=== PATIENT | male | born 1960 | race Caucasian/White ===

== ENCOUNTER 2017-11-10 10:03 | Emergency (ER) | payer BC ==
[2017-11-10 10:13] VITALS: BP 132/83
--- NOTE | 2017-11-10 10:50 | UC ---
Skin Complaint HPI - HPI Summary HPI Summary: 56 Y/O male presents with C/O tick bite. removed tick but states feels there is still part of insect imbedded in skin. States does not know how long tick has been there. Works outside. All other medical history and medication use reviewed at this visit. - History of Current Complaint Chief Complaint: UCSkin Time Seen by Provider: 11/10/17 10:34 Stated Complaint: TICK BITE Hx Obtained From: Patient Onset/Duration: Sudden Onset Skin Exposure Onset/Duration: Days Ago - Unsure of how long tick has been imbedded. Pain Intensity: 0 Pain Scale Used: 0-10 Numeric - Allergy/Home Medications Allergies/Adverse Reactions: Allergies Allergy/AdvReac Type Severity Reaction Status Date / Time No Known Allergies Allergy Verified 11/10/17 10:10 Review of Systems Constitutional: Negative Skin: Rash Respiratory: Negative Cardiovascular: Negative Gastrointestinal: Negative Genitourinary: Negative Motor: Negative Neurovascular: Negative Musculoskeletal: Negative Neurological: Negative Psychological: Negative Is Patient Immunocompromised?: No All Other Systems Reviewed And Are Negative: Yes PMH/Surg Hx/FS Hx/Imm Hx Previously Healthy: Yes Other History Of: Negative For: HIV, Hepatitis B, Hepatitis C - Surgical History Surgical History: Yes Surgery Procedure, Year, and Place: Hernia repair. right knee scope - Family History Known Family History: Positive: None - Social History Alcohol Use: Occasionally Substance Use Type: None Smoking Status (MU): Never Smoked Tobacco Have You Smoked in the Last Year: No - Immunization History Most Recent Influenza Vaccination: fall Most Recent Tetanus Shot: unsure - thinks he is UTD Physical Exam Triage Information Reviewed: Yes Appearance: Well-Appearing Vital Signs: Initial Vital Signs Temp 97.9 F 11/10/17 10:10 Pulse 55 11/10/17 10:10 Resp 16 11/10/17 10:10 BP 132/83 11/10/17 10:10 Pulse Ox 100 11/10/17 10:10 Skin Exam: Other Skin: Positive: rashes - Localized erythema / rash Course/Dx - Differential Diagnoses - Skin Complaint Differential Diagnoses: Tick Born Illness - Diagnoses Provider Diagnoses: Tick Bite Discharge - Sign-Out/Discharge Documenting (check all that apply): Discharge/Admit/Transfer - Discharge Plan Condition: Critical Disposition: HOME Patient Education Materials: Tick Bite (ED) Referrals: Brina Leung MD [Primary Care Provider] - Additional Instructions: Take medication, one dose only. Please follow up with your primary medical provider for a blood Titer for lyme disease. You may return to Urgent Care as needed. - Billing Disposition and Condition Condition: CRITICAL Disposition: HOME
== END 2017-11-10 11:03 | disposition home or self-care (01) ==
LOC: UCEAST 10:03
DX: S40.862A Insect bite (nonvenomous) of left upper arm, initial encounter (principal); W57.XXXA Bitten or stung by nonvenomous insect and other nonvenomous arthropods, initial encounter; Y93.9 Activity, unspecified; Y92.9 Unspecified place or not applicable
CPT/HCPCS: 99212; G0463

== ENCOUNTER 2019-02-07 09:13 | Emergency (ER) | payer BC ==
[2019-02-07 10:50] VITALS: BP 124/86
--- NOTE | 2019-02-07 11:11 | UC ---
Dizzy HPI HPI Summary: 58 year old male with no PMH presents with dizziness, intermittent, over past several days. Patient works outdoors, noted 2 days ago after returning from work in the heat he felt "funny", made worse while he took a warm shower, improved after lying down. Yesterday was OK, but today noted dizziness again, worse with moving his head fast. Denies chest pain, SOB, fainting, weakness. no prior history of this. Also has h/o root canal with h/o infection- Notes ~ 3-4 days ago had "abscess" in area that he drained. He denies current symptoms, no difficulty chewing, swallowing. no fever, chills, no sinus pain - History Of Current Complaint Chief Complaint: UCDizziness Stated Complaint: dental Time Seen by Provider: 02/07/19 10:13 Hx Obtained From: Patient Onset/Duration: Sudden Onset, Lasting Days, Still Present Timing: Constant Severity Currently: None Pain Intensity: 0 Pain Scale Used: 0-10 Numeric Character: Dizzy, Unable To Describe Alleviating Factor(s): Nothing - Allergies/Home Medications Allergies/Adverse Reactions: Allergies Allergy/AdvReac Type Severity Reaction Status Date / Time No Known Allergies Allergy Verified 02/07/19 09:25 PMH/Surg Hx/FS Hx/Imm Hx Previously Healthy: Yes Other History Of: Negative For: HIV, Hepatitis B, Hepatitis C - Surgical History Surgical History: Yes Surgery Procedure, Year, and Place: Hernia repair. right knee scope - Family History Known Family History: Positive: None, Non-Contributory - Social History Alcohol Use: Occasionally Substance Use Type: None Smoking Status (MU): Never Smoked Tobacco Have You Smoked in the Last Year: No - Immunization History Most Recent Influenza Vaccination: fall Most Recent Tetanus Shot: unsure - thinks he is UTD Review of Systems All Other Systems Reviewed And Are Negative: Yes Skin: Positive: Negative ENT: Negative: Nasal Discharge, Sinus Congestion, Sinus Pain/Tenderness Respiratory: Positive: Shortness Of Breath, Cough Cardiovascular: Negative: Palpitations, Chest Pain Neurological: Negative: Headache Is Patient Immunocompromised?: No Physical Exam Triage Information Reviewed: Yes Appearance: Well-Appearing, No Pain Distress, Well-Nourished Vital Signs: Initial Vital Signs Temp 98.1 F 02/07/19 09:15 Pulse 57 02/07/19 09:15 Resp 16 02/07/19 09:15 BP 132/85 02/07/19 09:15 Pulse Ox 99 02/07/19 09:15 Vital Signs Reviewed: Yes Eyes: Positive: Conjunctiva Clear ENT: Positive: Hearing grossly normal, Pharynx normal, TMs normal, Uvula midline. Negative: Tonsillar swelling, Tonsillar exudate, Sinus tenderness Dental: Positive: Other: - upper left with root canal where patient states swelling, redness has been, none seen currently, no gingival disease. Negative : Percussion Tenderness @, Gross Decay/Caries @, Dental Fracture @ Neck: Positive: Supple, Nontender, No Lymphadenopathy Respiratory: Positive: Chest non-tender, Lungs clear, Normal breath sounds, No respiratory distress, No accessory muscle use. Negative: Crackles, Rhonchi, Stridor, Wheezing Cardiovascular: Positive: RRR, No Murmur Musculoskeletal Exam: Normal Neurological Exam: Normal Neurological: Positive: Other: - neg rhomb gait normal Psychological Exam: Normal Skin Exam: Normal Dizzy Course/Dx - Course Course Of Treatment: Likely Benign Vertigo made worse with dehydration - Increase fluid intake to restore fluid balance and help with dizzy symptoms - Jesarturo waldronver for dizziness as shown - Antibiotics for infected root canal site if symptoms return - Follow up with ENT within 1-2 weeks for dizzy symptoms and area on left tonsil - Differential Dx/Diagnosis Differential Diagnosis/HQI/PQRI: Labyrinthitis, Metabolic Abnormality, Transient Ischemic Attack, Vasovagal Reaction Provider Diagnosis: Vertigo Discharge - Sign-Out/Discharge Documenting (check all that apply): Patient Departure All imaging exams completed and their final reports reviewed: No Studies - Discharge Plan Condition: Good Disposition: HOME Prescriptions: Amoxicillin PO (*) [Amoxicillin 875 MG (*)] 875 mg PO BID #20 tab Meclizine TAB* [Antivert 12.5 TAB*] 25 mg PO TID PRN #20 tab PRN Reason: Dizziness Patient Education Materials: Dehydration (ED), Vertigo (DC) Referrals: Brina Leung MD [Primary Care Provider] - Rajesh Shelton MD [Medical Doctor] - 2 Weeks (Follow up for dizzy symptoms and mass on left tonsil ) Additional Instructions: - Increase fluid intake to restore fluid balance and help with dizzy symptoms - Jesarturo wallace for dizziness as shown - Antibiotics for infected root canal site if symptoms return - Follow up with ENT within 1-2 weeks for dizzy symptoms and area on left tonsil - Billing Disposition and Condition Condition: GOOD Disposition: Home
== END 2019-02-07 11:15 | disposition home or self-care (01) ==
LOC: UCEAST 09:13
DX: R42 Dizziness and giddiness (principal)
CPT/HCPCS: 99212; G0463

== ENCOUNTER 2019-09-25 07:02 | Emergency (ER) | payer BC ==
--- NOTE | 2019-09-25 07:11 | UC ---
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 He comes to the urgent care center complaining of focused areas of redness on his left hand that are tender to the touch as well as some rash like area on his upper left arm. Patient denies fever. Description of Pain:. Pain is mild, 2/10, and worse with palpation. Arm aches. Pain has remained the same or worsen over the last 3 days. VITAL SIGNS REVIEWED. Within normal limits unless noted here. NURSES NOTE REVIEWED. "pt states he was cutting pvc pipe on sunday, thought he may have had splinters, but starting sunday, he noticed red spots on his left arm, which started aching all the way up his arm. no chest pain. the spots are tender to the touch. afebrile. " - History of Current Complaint Time Seen by Provider: 09/25/19 07:10 Stated Complaint: RASH ON HAND AND ARM Hx Obtained From: Patient - Allergy/Home Medications Allergies/Adverse Reactions: Allergies Allergy/AdvReac Type Severity Reaction Status Date / Time No Known Allergies Allergy Verified 09/25/19 07:14 Home Medications: Home Medications Cephalexin CAP* [Keflex 500 CAP*] 500 mg PO TID #21 cap MDD 3 09/25/19 [Rx] Ibuprofen [Advil] 600 mg PO ONCE 09/25/19 [History Confirmed 09/25/19] Mupirocin 2% CREAM* [Bactroban 2% CREAM*] 1 applic TOPICAL BID #1 tube MDD 3 [Rx] PMH/Surg Hx/FS Hx/Imm Hx - Additional Past Medical History Additional PMH: PAST MEDICAL HISTORY- CHRONIC and RECURRENT HEALTH PROBLEM LIST REVIEWED. Information relevant to present complaint: no significant problems relevant to the patient's present complaint VISIT HISTORY REVIEWED. MEDICATIONS & ALLERGIES REVIEWED. HYPERTENSION STATUS:no history of hypertension FAMILY HISTORY: Positive for: skin cancer SOCIAL HISTORY: Smoker:no Alcohol: Occasional Home:lives with his Employment:works in construction Previously Healthy: Yes Other History Of: Negative For: HIV, Hepatitis B, Hepatitis C - Surgical History Surgical History: Yes Surgery Procedure, Year, and Place: Hernia repair. right knee scope - Family History Known Family History: Positive: None, Non-Contributory - Social History Alcohol Use: Occasionally Substance Use Type: None Smoking Status (MU): Never Smoked Tobacco Have You Smoked in the Last Year: No - Immunization History Most Recent Influenza Vaccination: 2015 fall Most Recent Tetanus Shot: unsure - thinks he is UTD Review of Systems All Other Systems Reviewed And Are Negative: Yes Skin: Positive: Rash - left hand Respiratory: Positive: Negative Cardiovascular: Positive: Negative Gastrointestinal: Positive: Negative Is Patient Immunocompromised?: No Physical Exam - Summary Physical Exam Summary: Appearance: The patient is well-appearing, is in no pain or distress, and is well-nourished. Eyes: Conjunctiva are clear. Pupils are equal and reactive to light and accommodation. Extra ocular muscle movement is intact. ENT: The hearing is grossly normal, the pharynx is normal, and the TMs are normal. There is no muffled or hoarse voice. No stridor. Neck: The neck is supple and there is no lymphadenopathy. Respiratory: The chest is non-tender to palpation and without crepitus. The lungs are clear, there are normal breath sounds, and there is no respiratory distress. No wheezes, rales or rhonchi. Cardiovascular: Heart sounds reveal a regular rate and rhythm. There are no clicks, rubs or murmurs. There are no carotid bruits or thrills. Circulation is grossly intact. Abdomen: The abdomen is soft and nontender. There is no organomegaly. Bowel sounds are present and within normal limits. No point tenderness at McBurneys point. No CVA tenderness. Musculoskeletal: Strength is intact. The patient moves all extremities. Neurological: The patient is alert. Motor and sensory are examination grossly intact. Speech is normal. Psychological: The patient displays age appropriate behavior, and is conversant. GCS=15. Skin: examination of the patient's left upper extremity shows a 2.0 cm round erythematous lesion on the left thenar eminence; there are small, 1 cm erythematous areas, one on the thumb and one on the dorsum of the hand. There is no ascending cellulitis or lymphangitis. On the lateral aspect of the left upper arm there is a nonvesicular rash that looks more allergic than infectious. 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 He comes to the urgent care center complaining of focused areas of redness on his left hand that are tender to the touch as well as some rash like area on his upper left arm. Patient denies fever. Vital signs are stable. The patient is afebrile. examination of the patient's left upper extremity shows a 2.0 cm round erythematous lesion on the left thenar eminence; there are small, 1 cm erythematous areas, one on the thumb and one on the dorsum of the hand. There is no ascending cellulitis or lymphangitis. On the lateral aspect of the left upper arm there is a nonvesicular rash that looks more allergic than infectious. my diagnosis includes the possibility of retained foreign bodies causing a reactive erythema. I cannot rule out an early localized cellulitis. There also looks like an area of contact dermatitis in the left upper arm. This area will be treated with over-the- counter hydrocortisone. The other areas of erythema will be treated with Bactroban and I will give the patient cephalexin for 7 days. He will use warm soaks and will follow-up in the next 1-2 days if his condition worsens. - Differential Diagnoses - Skin Complaint Differential Diagnoses: Allergic Reaction, Cellulitis - Diagnoses Provider Diagnosis: Cellulitis Discharge ED - Sign-Out/Discharge Documenting (check all that apply): Patient Departure All imaging exams completed and their final reports reviewed: No Studies - Discharge Plan Condition: Stable Disposition: HOME Prescriptions: Cephalexin CAP* [Keflex 500 CAP*] 500 mg PO TID #21 cap MDD 3 Mupirocin 2% CREAM* [Bactroban 2% CREAM*] 1 applic TOPICAL BID #1 tube MDD 3 Patient Education Materials: Cellulitis (DC) Referrals: Brina Leung MD [Primary Care Provider] - Additional Instructions: WE DISCUSSED: PLEASE SEEK CARE AT THE EMERGENCY DEPARTMENT IF SYMPTOMS WORSEN OR IF NEW SYMPTOMS DEVELOP. FOLLOW UP WITH YOUR PRIMARY CARE PHYSICIAN IF CONDITION CONTINUES BEYOND 3 DAYS WITHOUT IMPROVEMENT. YOUR DIAGNOSIS IS: Skin infection, cellulitis of your left hand. He may also have small splinters left under the skin. You may also have a small area of an allergic reaction and your left upper arm. YOUR PRESCRIPTION RECOMMENDATION IS:Keflex, take one pill 3 times a day. Also buy [id number] hydrocortisone and use it twice a day to the area of your upper arm. He will also be prescribed Bactroban. This is a special antibiotic cream. Use it over the areas you think door splinters. OTHER INSTRUCTIONS:watch for any increasing pain, swelling, or redness. FOR PAIN AND/OR SLEEP: For pain: Ibuprofen (Motrin and other brand names) 400-600mg PLUS acetaminophen (Tylenol and other brand names) 500mg - 1000mg every 8 hours. - Billing Disposition and Condition Condition: STABLE Disposition: Home
[2019-09-25 07:18] VITALS: BP 123/83
== END 2019-09-25 08:08 | disposition home or self-care (01) ==
LOC: UCEAST 07:02
DX: L03.114 Cellulitis of left upper limb (principal)
CPT/HCPCS: 99212; G0463; U0002